=== PATIENT | male | born 1940 | race Caucasian/White ===

== ENCOUNTER 2018-07-31 07:58 | Day surgery (SDC) ==
[2018-07-31 08:52] VITALS: TEMP 98.3
[2018-07-31] MEDS ORDERED: LIDOCAINE 1% 20 ML MDV ID STA (08:52)
[2018-07-31] MEDS ORDERED: DIPRIVAN 20 ML VIAL IVP ONE (09:35)
[2018-07-31 15:09] VITALS: BP 132/68
--- NOTE | 2018-08-01 12:55 | OP ---
PROCEDURE: COLONOSCOPY TO THE ANASTOMOSIS. ENDOSCOPIST: Ted WITT M.D. INDICATION: HISTORY OF COLON CANCER. INSTRUMENT: [id number]. MEDICATION: PER ANESTHESIA. PROCEDURE: The patient was positioned for colonoscopy. The digital rectal exam was negative. The colonoscope was inserted through the anus and advanced to the anastomosis. The patient has undergone a right colectomy. [place] Bowel Prep Score 2+2+3=7. Scattered diverticulosis was noted in the left colon. The retroflex exam was normal. No evidence for inflammatory change, polyp or mass. The anastomosis was healthy. The patient tolerated the procedure without immediate complication. Withdrawal time 7 minutes and 33 seconds. PLAN: 1. Repeat colonoscopy for surveillance in 5 years. CC: DR. SADIE MANCIA
== END 2018-07-31 10:30 | disposition home or self-care (01) ==
LOC: SURG 07:58
PROVIDERS: ATTEND Internal Medicine Gastroenterology
DX: Z85.038 Personal history of other malignant neoplasm of large intestine (principal)
CPT/HCPCS: 00812; G0105

== ENCOUNTER 2019-04-05 21:28 | Inpatient (IN) ==
[2019-04-05] MEDS ORDERED: SODIUM CHLORIDE 1,000 ML IV STA (22:16)
--- NOTE | 2019-04-05 23:05 | CT ---
EXAM: CT of the abdomen and pelvis without contrast. HISTORY: Diarrhea. PROCEDURE: Contiguous axial CT images of the abdomen and pelvis without contrast with coronal and sa gittal reformats. FINDINGS: There is a small pericardial effusion measuring up to 8 mm AP. The liver is normal in appe arance. The gallbladder is surgically absent. The pancreas, spleen and adrenal glands are normal in appearance. There are fluid density cysts in both kidneys. There is a 4 mm hyperdense lesion in th e lower pole of the left kidney probably representing a hemorrhagic cyst. The abdominal aorta is wit hin normal limits in diameter. There are atherosclerotic calcifications in the major arteries of the abdomen and pelvis. There is a focal area of fat density with peripheral calcification measuring 7. 1 x 3.5 cm consistent with fat necrosis in the mesenteric fat of the right anterior mid abdomen. The re is a right hemicolectomy with an anastomosis at the level of the proximal transverse colon. There are a few loops of air and fluid-filled small bowel measuring up to 3.3 cm in diameter. No transiti on point identified. There is diverticulosis of the colon with no evidence of diverticulitis. No fr ee fluid or free air in the abdomen or pelvis. There is a ventral hernia repair. The bladder is dec ompressed which limits the evaluation. The seminal vesicles and prostate gland are unremarkable. Th ere are degenerative changes in the spine. Impression: Nonspecific small bowel distension as described. The differential diagnosis includes ile us, enteritis and early versus partial small bowel obstruction. Colonic diverticulosis without diverticulitis. Right hemicolectomy. Atherosclerotic vascular disease. 4 mm hyperdense lesion in the left kidney, probably representing a hemorrhagic cyst. 7.1 x 3.5 cm fat necrosis as described. Cholecystectomy. Small pericardial effusion as described.
--- NOTE | 2019-04-05 23:12 | ED.PDOC ---
General ED Provider: Dr. JANES PROCTOR-ER Chief Complaint: Diarrhea Stated Complaint: nain had lots of diarrhea---my arms and legs hurt Time Seen by Physician: 23:13 Mode of Arrival: Walk-In Information Source: Patient Primary Care Provider: CORIE NOEL Nursing and Triage Documentation Reviewed and Agree: Yes Does patient meet sepsis criteria?: No System Inflammatory Response Syndrome: Not Applicable Sepsis Protocol: For patient's 13 years and over: Temp is 96.8 and below OR 101 and greater Pulse >90 BPM Resp >20/minute Acutely Altered Mental Status Are patient's symptoms suggestive of a new infection, such as: -Pneumonia -Skin, Soft Tissue -Endocarditis -UTI -Bone, Joint Infection -Implantable Device -Acute Abdominal Infection -Wound Infection -Meningitis -Blood Stream Catheter Infection -Unknown GI Complaint Exam Vomiting/Diarrhea Complaint/Exam Onset/Duration: 24 hrs Initial Severity: Mild Current Severity: Moderate Character of Vomiting: Reports Non-bilious Character of Diarrhea: Reports Watery Aggravating: Reports None Associated Signs and Symptoms: Reports Dizziness, Abdominal pain and Cramping Kussmaul Respirations Present: No Differential Diagnoses: Dehydration, Viral Gastroenteritis and Bacterial Gastroenteritis Review of Systems Review Of Systems Constitutional: Reports No symptoms Eyes: Reports No symptoms Ears, Nose, Mouth, Throat: Reports No symptoms Respiratory: Reports No symptoms Cardiac: Reports No symptoms GI: Reports Diarrhea, Poor appetite and Poor fluid intake : Reports No symptoms Musculoskeletal: Reports No symptoms Skin: Reports No symptoms Neurological: Reports No symptoms Endocrine: Reports No symptoms Hematologic/Lymphatic: Reports No symptoms All Other Systems: Reviewed and Negative Physical Exam Physical Exam Appearance: Ill-appearing Ill-appearing: Mild Pain Distress: Moderate Eyes: JENNIFER, EOMI and Conjunctiva clear ENT: Ears normal, Nose normal and Dry mucosa Neck: Supple Respiratory: Airway patent Cardiovascular: RRR GI/: Soft, Nontender, No masses, Bowel sounds normal and No Organomegaly Musculoskeletal: Normal strength Skin: Warm and Dry Neurological: Sensation intact Psychiatric: Affect appropriate Interpretation Radiology Interpretation Radiology Interpretation By: Radiologist Radiology Results: Negative Exam Interpreted: CT Scan Re-Evaluation Re-Evaluation Time of Re-Evaluation: 23:10 Status: Improved Vital Signs Stable: Yes Appearance: NAD Lungs: Clear Skin: Warm and Dry Neuro: Alert and Oriented X3 CV: RRR Physician Notification Case Discussed Physician Notified: dr ham Time of Notification: 23:12 Critical Care Note Critical Care Note Total Time (mins): 30 Course Course Hematology/Chemistry: 04/05/19 22:25 04/05/19 22:25 Orders, Labs, Meds: Lab Review 04/05/19 04/05/19 22:25 22:25 WBC 9.03 RBC 4.96 Hgb 14.5 Hct 43.5 MCV 87.7 MCH 29.2 MCHC 33.3 RDW Coeff of Jaime 13.5 Plt Count 355 Immature Gran % (Auto) 0.4 Neut % (Auto) 51.9 Lymph % (Auto) 31.6 [place] % (Auto) 11.5 H Eos % (Auto) 4.3 Baso % (Auto) 0.3 Immature Gran # (Auto) 0.0 Neut # (Auto) 4.7 Lymph # (Auto) 2.9 [place] # (Auto) 1.0 Eos # (Auto) 0.4 Baso # (Auto) 0.0 ESR Pending Sodium 142.2 Potassium 4.24 Chloride 111.8 H Carbon Dioxide 13.6 L Anion Gap 21.04 BUN 26.0 H Creatinine 2.10 H Estimated GFR (MDRD) 31.00 BUN/Creatinine Ratio 12.38 Glucose 173.9 H Calcium 9.91 Total Bilirubin 0.64 AST 40.7 ALT 31.7 Alkaline Phosphatase 58.6 Total Protein 9.59 H Albumin 4.92 Globulin 4.67 Albumin/Globulin Ratio 1.05 Orders Category Date Time Status EKG-(ED ONLY) Stat CARDIO 04/05/19 22:16 Ordered ED IV/MEDIPORT/POWERPORT .ONCE EMERGENCY 04/05/19 22:16 Active CBC W/ AUTO DIFF Stat LAB 04/05/19 22:25 Results COMPREHENSIVE METABOLIC PANEL Stat LAB 04/05/19 22:25 Completed ESR Stat LAB 04/05/19 22:25 Results URINALYSIS C & S IF INDICATED Stat LAB 04/05/19 22:16 Uncollected 0.9 % Sodium Chloride [Saline Flush] MEDS 04/05/19 22:16 Active 1 syr IVF PRN PRN Sodium Chloride 0.9% [Sodium Chloride] 1,000 ml MEDS 04/05/19 22:[address] ABDOMEN/PELVIS WO CONTRAST Stat RADS 04/05/19 22:16 Completed Medications Generic Name Dose Route Start Last Admin Trade Name Freq PRN Reason Stop Dose Admin Sodium Chloride 1,000 mls @ 1,000 mls/hr 04/05/19 22:16 04/05/19 22:42 Sodium Chloride IV 04/05/19 23:15 1,000 mls/hr BOLUS STA Administration Sodium Chloride 1 syr 04/05/19 22:16 04/05/19 22:42 Saline Flush IVF 1 syr PRN PRN Administration To flush IV Vital Signs: Temp Pulse Resp BP Pulse Ox 04/05/19 21:29 98.3 F 115 H 20 145/88 H 95 Discharge Plan Discharge Patient Disposition: ADMITTED INPATIENT Discharge Problem: YVONNE (acute kidney injury), Diarrhea Prescriptions: No Action carvedilol 12.5 MG tablet 1 tab PO BID RF: 0 pravastatin 80 MG tablet 40 mg PO DAILY RF: 0 metformin 1,000 MG tablet 1,000 mg PO BID RF: 0 gabapentin [Neurontin] 300 MG capsule 900 mg PO TID RF: 0 fenofibrate 160 MG tablet 1 tab PO DAILY RF: 0 valsartan-hydrochlorothiazide 1 EACH tablet 1 ea PO DAILY RF: 0 cholecalciferol (vitamin D3) [Vitamin D3] 1,000 UNIT tablet 1,000 unit PO DAILY RF: 0 potassium chloride 20 MEQ tablet extended release 20 meq PO DAILY RF: 0 cyanocobalamin (vitamin B-12) [B-12 Compliance] 1,000 MCG/ML kit 1,000 mcg IM MONTHLY RF: 0 atorvastatin 40 mg Tablet 40 mg PO DAILY RF: 0 isosorbide mononitrate 30 mg Tablet Extended Release 24 Hr 30 mg PO DAILY RF: 0 atenolol 25 mg Tablet 25 mg PO DAILY RF: 0 Januvia 25 mg Tablet 25 mg PO DAILY RF: 0 tamsulosin 0.4 MG capsule 0.4 mg PO BID RF: 0 ED Provider: JANES MUÑIZ Condition: Fair
[2019-04-05] MEDS ORDERED: TYLENOL PO PRN (23:14)
[2019-04-05] MEDS ORDERED: HUMULIN R SUBCUT PRN (23:19)
[2019-04-05 23:57] VITALS: BMI 30.4
[2019-04-06] MEDS: SODIUM CHLORIDE 0.9%-KCL 20 MEQ 1,000 ML IV SCH ×2 (00:21→13:19)
[2019-04-06] MEDS ORDERED: NEURONTIN PO STA (02:12)
--- NOTE | 2019-04-06 08:53 | PCM.PROG ---
Attending Provider: ATTENDING PROVIDER: Dr. CORIE GOMEZ This patient is seen with Elaina Dugan, Nurse Practitioner. DATE OF SERVICE: 04/06/19 SUBJECTIVE: This 78 year old /WHITE M was hospitalized 04/05/19. The patient is resting comfortably. He had five stools through the night. Stool studies pending. No blood in stool. No nausea or vomiting. Cramping of the hands is better. REVIEW OF SYSTEMS: CONSTITUTIONAL: Weakness. No night sweats. No fatigue, malaise, lethargy. No fever or chills. HEENT: Eyes: No visual changes. No eye pain. No eye discharge. ENT: No runny nose. No epistaxis. No sinus pain. No odynophagia. No congestion. RESPIRATORY: No cough, no congestion. No hemoptysis. No shortness of breath. CARDIOVASCULAR: No angina symptoms. No CHF symptoms. No atypical chest pain for CAD. No palpitations. No orthopnea.. GASTROINTESTINAL: Positive for diarrhea. No abdominal pain. No nausea or vomiting. No constipation. No hematemesis. No hematochezia. GENITOURINARY: No urgency. No frequency. No dysuria. No hematuria. No obstructive symptoms. No discharge. No pain. No significant abnormal bleeding. MUSCULOSKELETAL: No musculoskeletal pain; no joint swelling. NEUROLOGICAL: Awake, alert, oriented to time, place and person. No headache. No neck pain. No syncope. No seizures. No dizziness. PSYCHIATRIC: Not anxious. No depression. No suicidal thoughts. No homicidal thoughts. SKIN: No rash. No lesions. No wounds. ENDOCRINE: No unexplained weight loss. No weight gain. HEMATOLOGIC/LYMPHATIC: No anemia. No purpura. No petechiae. No prolonged or ex cessive bleeding. No palpable lymph nodes. PHYSICAL EXAMINATION: GENERAL: The patient is awake, alert and oriented, lying/sitting in bed in no distress. VITAL SIGNS: Temperature 97.8 F, Pulse 86, Respiratory Rate 16, BP 160/98, Pulse Ox 93% HEENT: Head normocephalic, atraumatic. Eyes: Extraocular muscles are intact. Pupils are equal, round and reactive to light and accommodation. Ears: No lesions. Nose appeared normal. Throat: No exudate or erythema. NECK: Supple. No JVD, no carotid bruit. No lymphadenopathy or thyromegaly. LUNGS: Diminished breath sounds. Clear to auscultation. Percussion note normal. Chest symmetrical. HEART: S1, S2, no S3. Grade I/ murmur. No cyanosis or clubbing. No ascites. Pulses: Dorsalis pedis and posterior tibial pulses +1 to +2 both sides. ABDOMEN: Soft. Non-tender. Bowel sounds active. No CVA tenderness. No mass felt. EXTREMITIES: No edema. Full range of motion of all extremities, equal. NEUROLOGIC: No focal deficit. Cranial nerves II through XII are grossly intact. No headache, no double vision or headache. SKIN: Not dry. Intact. Turgor-normal. LYMPHATIC: No palpable lymph nodes/no lymphedema. MUSCULOSKELETAL: Normal joints with no swelling. Muscle tone is normal. LAB REVIEW: 04/06/19 05:55 04/06/19 05:55 04/06/19 05:55: Sodium 140.1, Potassium 4.58, Chloride 113.0 H, Carbon Dioxide 13.2 L, Anion Gap 18.48, BUN 29.4 H, Creatinine 2.25 H, Estimated GFR (MDRD) 28.00, BUN/Creatinine Ratio 13.06, Glucose 148.8 H, Calcium 9.58, Total Bilirubin 0.55, AST 40.2, ALT 32.3, Alkaline Phosphatase 53.3 L, Total Protein 9.19 H, Albumin 4.77, Globulin 4.42, Albumin/Globulin Ratio 1.07 04/06/19 05:55: WBC 8.54, RBC 4.89, Hgb 14.1, Hct 43.4, MCV 88.8, MCH 28.8, MCHC 32.5, RDW Coeff of Jaime 13.5, Plt Count 342, Immature Gran % (Auto) 0.4, Neut % (Auto) 49.2, Lymph % (Auto) 35.6, [place] % (Auto) 11.2 H, Eos % (Auto) 3.2, Baso % (Auto) 0.4, Immature Gran # (Auto) 0.0, Neut # (Auto) 4.2, Lymph # (Auto) 3.0, [place] # (Auto) 1.0, Eos # (Auto) 0.3, Baso # (Auto) 0.0 04/05/19 22:25: Sodium 142.2, Potassium 4.24, Chloride 111.8 H, Carbon Dioxide 13.6 L, Anion Gap 21.04, BUN 26.0 H, Creatinine 2.10 H, Estimated GFR (MDRD) 31.00, BUN/Creatinine Ratio 12.38, Glucose 173.9 H, Calcium 9.91, Total Bilirubin 0.64, AST 40.7, ALT 31.7, Alkaline Phosphatase 58.6, Total Protein 9.59 H, Albumin 4.92, Globulin 4.67, Albumin/Globulin Ratio 1.05 04/05/19 22:25: WBC 9.03, RBC 4.96, Hgb 14.5, Hct 43.5, MCV 87.7, MCH 29.2, MCHC 33.3, RDW Coeff of Jaime 13.5, Plt Count 355, Immature Gran % (Auto) 0.4, Neut % (Auto) 51.9, Lymph % (Auto) 31.6, [place] % (Auto) 11.5 H, Eos % (Auto) 4.3, Baso % (Auto) 0.3, Immature Gran # (Auto) 0.0, Neut # (Auto) 4.7, Lymph # (Auto) 2.9, [place] # (Auto) 1.0, Eos # (Auto) 0.4, Baso # (Auto) 0.0, ESR 34 H ASSESSMENT: Please see below. 1. Dehydration. 2. Acute renal failure. 3. Underlying Stage 3, chronic kidney disease. 4. COPD. 5. Coronary artery disease. The patient has recently refused catheterization recommended by Dr. Valle 6. Diabetes mellitus Type 2. PLAN: 1. Will monitor sugars. 2. Hold Triglide and Lipitor. 3. Continue IV fluids. 4. Stool studies pending. 5. Adjust Neurontin 700 mg b.i.d. per renal dosing. 6. [place] 5 mg b.i.d. p.r.n. Plan and coordination of the patient's care discussed in the presence of Airfield Services Officer and nurse. CONDITION: Stable SCRIBED BY: Shaun WHIPPLEist scribed while in presence of service performed by Dr. Gomez/Elaina Dugan APRN on 04/06/19 ([id number])
[2019-04-06] MEDS ORDERED: PRAVACHOL PO SCH (09:00)
[2019-04-06] MEDS ORDERED: LIPITOR PO SCH (09:00)
[2019-04-06] MEDS ORDERED: TRIGLIDE PO SCH (09:00)
[2019-04-06] MEDS ORDERED: HYDROCHLOROTHIAZIDE PO SCH (09:00)
[2019-04-06] MEDS ORDERED: VITAMIN D PO SCH (09:00)
[2019-04-06] MEDS ORDERED: K-DUR PO SCH (09:00)
[2019-04-06] MEDS ORDERED: COREG PO SCH (09:00)
[2019-04-06] MEDS ORDERED: VALSARTAN HYDROCHLOROTHIAZIDE PO SCH (09:00)
[2019-04-06] MEDS ORDERED: NEURONTIN PO SCH (09:00)
[2019-04-06] MEDS ORDERED: NORCO 5-325 PO PRN (09:05)
[2019-04-06] MEDS: NEURONTIN PO SCH ×4 (10:43→21:13)
[2019-04-06] MEDS: JANUVIA PO SCH (10:44)
[2019-04-06] MEDS: FLOMAX PO SCH ×2 (10:44→21:12)
[2019-04-06] MEDS: DIOVAN PO SCH (10:45)
[2019-04-06] MEDS: IMDUR PO SCH (10:45)
[2019-04-06] MEDS: TENORMIN PO SCH (10:45)
[2019-04-06] MEDS: LOVENOX SUBCUT SCH (10:46)
--- NOTE | 2019-04-06 14:49 | PN ---
DATE OF SERVICE: 04/06/19 SUBJECTIVE: The patient was seen and examined with the Nurse Practitioner. He was admitted with acute gastroenteritis. The patient is looking a lot better. Diarrhea has subsided. Stool is pending for C-Diff. Cardiovascular status along with respiratory status along with kidney status is stable. TIME SPENT: More than 30 minutes. Plan and coordination of the patient's care discussed in the presence of nurse. BLANCHE
[2019-04-06] MEDS: SODIUM CHLORIDE 1,000 ML IV SCH (15:51)
[2019-04-06] MEDS ORDERED: MYLANTA SUSP PO STA (20:46)
[2019-04-06] MEDS: SODIUM BICARBONATE PO SCH (21:11)
[2019-04-06] MEDS: PROAIR HFA IH SCH (23:43)
[2019-04-07] MEDS: SODIUM CHLORIDE 1,000 ML IV SCH (02:54)
[2019-04-07 05:08] VITALS: BP 103/62; TEMP 98.9
[2019-04-07] MEDS ORDERED: SODIUM CHLORIDE 1,000 ML IV SCH (08:30)
[2019-04-07] MEDS: PROAIR HFA IH SCH (09:37)
[2019-04-07] MEDS: DIOVAN PO SCH (09:38)
[2019-04-07] MEDS: SODIUM BICARBONATE PO SCH (09:40)
[2019-04-07] MEDS: NEURONTIN PO SCH ×2 (09:40)
[2019-04-07] MEDS: JANUVIA PO SCH (09:40)
[2019-04-07] MEDS: IMDUR PO SCH (09:40)
[2019-04-07] MEDS: TENORMIN PO SCH (09:41)
[2019-04-07] MEDS: FLOMAX PO SCH (09:41)
[2019-04-07] MEDS: LOVENOX SUBCUT SCH (09:43)
--- NOTE | 2019-04-09 09:13 | HP ---
DATE OF SERVICE: 04/06/19 HISTORY OF PRESENT ILLNESS: 78-year-old white male who presented to the emergency room complaining of diarrhea. He stated he had had at least 10 stools within the past 24 hours. He is now complaining of his arms and legs hurting. PAST MEDICAL HISTORY: Vitamin D deficiency GERD History of hypotension He had a stress test positive for reversible ischemia inferolateral septal wall. He refused cardiac catheterization by Dr. Valle. COPD, he sees Dr. Simpson yearly History of chronic bronchitis History of migraines Diabetes mellitus type 2 [facility] HIstory of colon cancer several years ago followed by Dr. Aponte History of coronary artery disease with LAD at 40% in [address] Gallagher History of anemia Chronic kidney disease, Stage 3 to 4, recently started seeing Dr. Marlyn Vasquez Degenrative disk disease of the spine History of prostatitis Chronic pain Neuropathy PAST SURGICAL HISTORY: He had bilateral eyelid surgery Cardiac cath was in 2010 Colonoscopy in July of 2018 REVIEW OF SYSTEMS: CONSTITUTIONAL: Positive for weakness. No night sweats. No malaise, lethargy. No fever or chills. HEENT: Positive for dry mucous membranes. Eyes: No visual changes. No eye pain. No eye discharge. ENT: No runny nose. No epistaxis. No sinus pain. No sore throat. No odynophagia. No ear pain. No congestion. RESPIRATORY: No cough, no congestion. No hemoptysis. No shortness of breath. CARDIOVASCULAR: No angina symptoms. No CHF symptoms. No atypical chest pain for CAD. No palpitations. No PND. No orthopnea. GASTROINTESTINAL: Positive for cramping, diarrhea. No nausea or vomiting. No constipation. No hematemesis. No hematochezia. GENITOURINARY: No urgency. No frequency. No dysuria. No hematuria. No obstructive symptoms. No discharge. No pain. No significant abnormal bleeding. MUSCULOSKELETAL: No musculoskeletal pain. No joint swelling. No arthritis. NEUROLOGICAL: No headache. No neck pain. No syncope. No seizures. No dizziness. PSYCHIATRIC: Not anxious. No depression. No suicidal thoughts. No homicidal thoughts. SKIN: No rash. No lesions. No wounds. ENDOCRINE: No unexplained weight loss. No weight gain. HEMATOLOGIC/LYMPHATIC: No anemia. No purpura. No petechiae. No prolonged or excessive bleeding. No palpable lymph nodes. PERSONAL/FAMILY/SOCIAL HISTORY: He is , lives at home with his . He was a former smoker, quit for the past 15 to 20 years. No alcohol or ilicit drug use. MEDICATIONS: (HOME) Gabapentin 900 mg p.o. t.i.d. Fenofibrate 160 mg one tab p.o. daily Tamsulosin 0.4 mg p.o. b.i.d. Cyanocobalamin 1,000 mcg IM monthly Sitagliptin (Januvia) 25 mg p.o. daily Isosorbide Mononitrate 30 mg p.o. daily Atenolol 25 mg p.o. daily Atorvastatin 40 mg p.o. daily Valsartan-Hydrochlorothiazide 0.5 tab p.o. daily ALLERGIES: PENICILLINS, LEVOFLOXACIN, OXYTETRACYCLINE PHYSICAL EXAMINATION: VITAL SIGNS: Temperature 98.3, heart rate 115, BP 145/88, pulse ox 95%. HEENT: Pallor positive. Head normocephalic, atraumatic. Eyes: Extraocular muscles are intact. Pupils are equal, round and reactive to light and accommodation. Ears: No lesions. Nose appeared normal. Throat: No exudate or erythema. NECK: Supple. No JVD, no carotid bruit. No lymphadenopathy or thyromegaly. LUNGS: Diminished breath sounds bilaterally. Clear to auscultation. Percussion note normal. Chest symmetrical. HEART: S1, S2, no S3. No murmur. No cyanosis or clubbing. No ascites. Pulses: Dorsalis pedis and posterior tibial pulses +1 to +2 bilaterally. ABDOMEN: Soft. Nontender. Bowel sounds active. No CVA tenderness. No mass felt. EXTREMITIES: No leg edema. Full range of motion of all extremities, equal. NEUROLOGIC: No focal deficit. Cranial nerves II through XII are grossly intact. No headache, no double vision or headache. SKIN: Not dry. Intact. Turgor - normal. LYMPHATIC: No palpable lymph nodes/no lymphedema. MUSCULOSKELETAL: Normal joints with no swelling. Muscle tone is normal. LABS/IMAGING: CT of the abdomen and pelvis shows small bowel distention, differential diagnosis to include ileus, enteritis, early partial small bowel obstruction, colonic diverticulosis without diverticulitis, right hemicolectomy. Cyst on the left kidney. White count 9.0, hemoglobin 14.5, hematocrit 43.5, platelets 355. Sodium 142, potassium 4.2, BUN 26, creatinine 2.1, glucose 173. ASSESSMENT: 1. ACUTE RENAL FAILURE 2. ACUTE DEHYDRATION 3. DIARRHEA 4. ACUTE COLITIS PER CT 5. DIABETES MELLITUS TYPE 2 6. COPD 7. HISTORY OF COLON CANCER 8. UNDERLYING CHRONIC KIDNEY DISEASE, STAGE 3 TO 4 PLAN: 1. We will admit. 2. Routine telemetry orders. 3. No cardiac markers. 4. CBC, CMP daily. 5. Start IV NS @ 75 cc/hr. 6. Stool for culture and sensitivity. 7. Stool for C. diff. 8. Continue home medications. 9. Hold Hydrochlorothiazide. 10. Soft, bland diet. 11. Oxygen at 1 to 2L as needed. 12. Will monitor blood sugars with Accu-Cheks b.i.d. 13. Will follow closely. TIME SPENT: More than 70 minutes. MTDD
--- NOTE | 2019-04-10 09:21 | PN ---
DATE OF SERVICE: 04/07/19 - DISCHARGE NOTE SUBJECTIVE: The patient was seen and examined today. The patient's creatinine was reported as 4.9 with BUN of 50. The patient's creatinine was 2.2 with BUN of 30 yesterday. The patient has been given 75 cc/hr IV fluids. He had some oral intake in spite of oral intake the patient's BUN and creatinine has gone up. The ABG done later on showed pH of 7.16 with normal P02 and Pc02 being low because of acidosis with normal pH. The patient has metabolic acidosis. The patient has history of renal failure followed by Dr. Cline with history of metabolic acidosis which was compensated. PHYSICAL EXAMINATION: HEENT: Head normocephalic, atraumatic. Eyes: Extraocular muscles are intact. Pupils are equal, round and reactive to light and accommodation. Ears: No lesions. Nose appeared normal. Throat: No exudate or erythema. NECK: Supple. No JVD, no carotid bruit. No lymphadenopathy or thyromegaly. LUNGS: Clear to auscultation. Percussion note normal. Chest symmetrical. HEART: S1, S2, no S3. No murmurs. No cyanosis or clubbing. No ascites. Pulses: Dorsalis pedis and posterior tibial pulses +1 to +2 bilaterally. ABDOMEN: Soft. Nontender. Bowel sounds active. No CVA tenderness. No mass felt. EXTREMITIES: Pedal edema noted. Full range of motion of all extremities, equal. NEUROLOGIC: No focal deficit. Cranial nerves II through XII are grossly intact. No headache, no double vision or headache. SKIN: Not dry. Intact. Turgor - normal. LYMPHATIC: No palpable lymph nodes/no lymphedema. MUSCULOSKELETAL: Normal joints with no swelling. Muscle tone is normal. ASSESSMENT: 1. The patient seems to have some diarrhea but the diarrhea seems to be getting under control. PLAN: Will transfer patient under engine research engineer at [facility], [place]. The Transfer Service was called. Dr. Tse accepted the transfer. The patient's family, and daughter were present. All the diagnosis were discussed. The patient has history of coronary artery disease followed by Dr. Valle at [facility], [place]. Also the patient has CA of the colon followed by Dr. Aponte in [place]. Dr. Cline is the engine research engineer. The patient's condition is otherwise stable. He is up and about; in fact, he is eating his lunch, finished half of it. CONDITION: Stable. TIME SPENT: More than 30 minutes. Plan and coordination of the patient's care discussed in the presence of nurse. BLANCHE
--- NOTE | 2019-04-10 09:22 | PN ---
BILLING 04/05/19 ADMISSION DAY LEVEL 5 04/06/19 INTERMEDIATE 04/07/19 DISCHARGE MTDD
--- NOTE | 2019-04-16 14:53 | DS ---
DATE OF SERVICE: 04/07/19 FINAL DIAGNOSIS: 1. METABOLIC ACIDOSIS 2. ACUTE RENAL FAILURE 3. UNDERLYING CKD, STAGE 3 4. COPD 5. HISTORY OF COLON CANCER DISCHARGE INSTRUCTIONS: Transfer the patient to [facility] under felling bucking supervisor. MEDICATIONS AT DISCHARGE: Gabapentin 900 mg p.o. t.i.d. Fenofibrate 160 mg one tab p.o. daily Tamsulosin 0.4 mg p.o. b.i.d. Cyanocobalamin 1,000 mcg IM monthly Sitagliptin 25 mg p.o. daily Isosorbide Mononitrate 30 mg p.o. daily Atenolol 25 mg p.o. daily Atorvastatin 40 mg p.o. daily Valsartan-Hydrochlorothiazide 0.5 tab p.o. daily NEW PRESCRIPTIONS: None DIET INSTRUCTIONS: As patient tolerates. ACTIVITY: As patient tolerates. SMOKING: Former smoker DISEASE SPECIFIC EDUCATION: Transfer to [facility] HOSPITAL COURSE: The patient was seen and examined today. The patient's creatinine was reported as 4.9 with BUN of 50. The patient's creatinine was 2.2 with BUN of 30 yesterday. The patient has been given 75 cc/hr IV fluids. He had some oral intake in spite of oral intake the patient's BUN and creatinine has gone up. The ABG done later on showed pH of 7.16 with normal P02 and Pc02 being low because of acidosis with normal pH. The patient has metabolic acidosis. The patient has history of renal failure followed by Dr. Cline with history of metabolic acidosis which was compensated. The patient seems to have some diarrhea but the diarrhea seems to be getting under control. PLAN: Will transfer patient under felling bucking supervisor at [facility]. The Transfer Service was called. Dr. Tse accepted the transfer. The patient's family, and daughter were present. All the diagnosis were discussed. The patient has history of coronary artery disease followed by Dr. Valle at [facility]. Also the patient has CA of the colon followed by Dr. Aponte in [place]. Dr. Cline is the felling bucking supervisor. The patient's condition is otherwise stable. He is up and about; in fact, he is eating his lunch, finished half of it. TIME SPENT: More than 60 minutes. [facility]
[2019-04-22] MEDS ORDERED: VITAMIN B-12 IM SCH (09:00)
== END 2019-04-07 14:26 | disposition short-term general hospital (02) | DRG 392 ==
LOC: ED 21:28 → MEDSURG B 23:17
PROVIDERS: ADMIT Internal Medicine; ATTEND Internal Medicine
DX: E11.9 Type 2 diabetes mellitus without complications; N18.3 Chronic kidney disease, stage 3 (moderate); E86.0 Dehydration; R42 Dizziness and giddiness; R10.9 Unspecified abdominal pain; K52.9 Noninfective gastroenteritis and colitis, unspecified; R63.0 Anorexia; E87.2 Acidosis; R19.7 Diarrhea, unspecified; J44.9 Chronic obstructive pulmonary disease, unspecified